=== PATIENT | female | born 1970 | race Caucasian/White ===

== ENCOUNTER → 2020-09-04 | Outpatient (CLI) | payer OTHER ==
[~2020-09-04] MED LIST: ACHYD1T PO; ALPR.5T PO; DCS100C PO; HYDR-2890 PO; IBP800T PO; RNT150T PO
--- NOTE | 2020-09-04 19:39 | Diagnostic Imaging Report ---
PROCEDURE: CT urinary tract, rule out kidney stone. TECHNIQUE: Multiple contiguous axial images were obtained through the abdomen and pelvis without the use of intravenous contrast. Auto Exposure Controls were utilized during the CT exam to meet ALARA standards for radiation dose reduction. INDICATION: Left flank pain, hematuria CORRELATION STUDY: None. FINDINGS: LOWER THORAX: Clear. LIVER: Borderline enlarged. Mild to moderate steatosis. Somewhat disproportionately greater involving the right lobe compared to the left lobe. Small sessile hyperdensity just above the gallbladder likely of no significance. GALLBLADDER: Somewhat contracted. Suspect gallstones. No overt bile ductal dilatation. SPLEEN: Unremarkable. PANCREAS: Unremarkable. ADRENAL GLANDS: Unremarkable. KIDNEYS: Kidney configuration is unremarkable. There is no definitive calcification. Slightly prominent right renal pelvis. There is the suggestion of increased density of the right renal pelvis, the possibility of some blood products not excluded. ABDOMINAL AORTA: Mild wall calcification, nonaneurysmal. GASTROINTESTINAL TRACT: Stomach is mildly distended with retained gastric contents. No small bowel obstruction. High density through the lumen of the appendix may be appendicoliths or debris. No inflammation. Mild stool retention within the proximal colon. No large fecal impaction. There is focal geographic inflammation of the fat anterior to the distal descending colon in the right lower quadrant. This area measures approximately 3 cm. URINARY BLADDER: Unremarkable. REPRODUCTIVE: Post hysterectomy. OSSEOUS STRUCTURES: Moderate asymmetric disc space narrowing at L5-S1 level. Endplate osteophyte formation results in moderate bilateral foraminal narrowing. OTHER: None. IMPRESSION: 1. Rather prominent focal inflammation of the fat anterior to the distal descending colon favors probable epiploic appendage. 2. No evidence for nephroureterolithiasis or obstructive uropathy. There is the question of very slight increased density about the right renal pelvis. The possibility of some blood products within the renal collecting system is not excluded. There is however no identifiable source for this. Consideration may be given to nonemergent follow-up contrast-enhanced CT imaging. 3. Borderline hepatomegaly with advanced at least moderate severity steatosis. 4. Suspect gallstones. Dictated by: Dictated on workstation # [id number]
== END ==
LOC: RAD 15:03
PROVIDERS: ATTEND Family Medicine
DX: K52.89 Other specified noninfective gastroenteritis and colitis (principal); K76.0 Fatty (change of) liver, not elsewhere classified; R31.9 Hematuria, unspecified; Z90.710 Acquired absence of both cervix and uterus
CPT/HCPCS: 74176